=== PATIENT | male | born 1985 | race Two or more races ===

== ENCOUNTER 2018-08-19 11:19 | Outpatient (CLI) | payer BC ==
[~2018-08-19 11:19] MED LIST: NABUMETONE750 MG PO
== END 2018-08-19 11:27 | disposition home or self-care (01) ==
LOC: RAD 501 11:19
DX: R05 Cough (principal); R59.0 Localized enlarged lymph nodes

== ENCOUNTER 2018-08-19 12:52 | Outpatient (CLI) | payer BC | END 2018-08-19 12:53 | disposition home or self-care (01) | LOC: SONOGRAMA 12:52 | DX: R59.0 Localized enlarged lymph nodes (principal) ==